=== PATIENT | female | born 1970 | race African-American/Black ===

== ENCOUNTER 2017-12-01 16:34 | Emergency (ER) | payer BC ==
[2017-12-01 16:40] VITALS: BP 141/86; PULSE 81; TEMP 98.3; BMI 32.9
[2017-12-01] MEDS ORDERED: LIDOCAINE 2.5%/PRILOCAINE 2.5% (5 Gram/TUBE) TP ONE ×2 (16:47→16:48)
--- NOTE | 2017-12-01 16:56 | PDOC ---
History of Present Illness - General History Source: Patient Exam Limitations: No Limitations - History of Present Illness Initial Comments: The patient is a 47 year old female with no significant past medical history who presents to the emergency department complaining of pedunculated mole pain on left side of neck beginning 5 days ago. The patient reports having 2 pedunculated moles on her left side of neck for most of her life without any irritation. The patient reports the dorsal pedunculated mole was painful, throbbing, warm, and sensitive to the touch today which prompted her to visit the ED today. The patient admits to taking Motrin with slight alleviation. The patient denies chest pain, shortness of breath, headache, and dizziness. Denies fevers, chills, nausea, vomiting, diarrhea, and constipation. Denies dysuria, frequency, urgency, and hematuria. Allergies: NKDA Past surgical history: Appendectomy, Hernia Repair Social history: Occasional alcohol use.No reported cigarette or drug use. <Mary Nogueira - Last Filed: 12/01/17 17:24> <Carroll Mireles - Last Filed: 12/01/17 17:26> - General Chief Complaint: Pain Stated Complaint: PAIN, SORENES TO MOLES LEFT NECK Time Seen by Provider: 12/01/17 16:38 Past History <Mary Nogueira - Last Filed: 12/01/17 17:24> - Past Medical History Asthma: Yes COPD: No Other medical history: ENVIRONMENTAL ALLERGIES - Surgical History Appendectomy: Yes - Suicide/Smoking/Psychosocial Hx Smoking History: Never smoked Have you smoked in the past 12 months: No Information on smoking cessation initiated: No Hx Alcohol Use: (occasional) <Carroll Mireles - Last Filed: 12/01/17 17:26> - Past Medical History Allergies/Adverse Reactions: Allergies Allergy/AdvReac Type Severity Reaction Status Date / Time No Known Drug Allergies Allergy Verified 12/01/17 16:35 Home Medications: Ambulatory Orders Albuterol Sulfate [Proair Hfa] 8.5 gm IH ASDIR 12/01/17 Fluticasone Prop 0.05% Nasal [Flonase -] 1 - 2 spray NS DAILY 12/01/17 Levocetirizine Dihydrochloride 5 mg PO DAILY 12/01/17 Review of Systems - Review of Systems Able to Perform ROS?: Yes Comments:: CONSTITUTIONAL: Absent: Fever, Chills, Diaphoresis, Generalized Weakness, Malaise, Loss of Appetite HEENT: (+)Pain in pedunculated mole on left side of neck. Absent: Rhinorrhea, Nasal Congestion, Throat Pain, Throat Swelling, Difficulty Swallowing, Mouth Swelling, Ear Pain, Eye Pain, Visual Changes CARDIOVASCULAR: Absent: Chest Pain, Syncope, Palpitations, Irregular Heart Rate, Lightheadedness , Peripheral Edema RESPIRATORY: Absent: Cough, Shortness of Breath, SOB with Exertion, Orthopnea, Wheezing, Stridor, Hemoptysis GASTROINTESTINAL: Absent: Abdominal pain, Abdominal Distension, Nausea, Vomiting, Diarrhea, Constipation, Melena, Hematochezia GENITOURINARY: Absent: Dysuria, Frequency, Urgency, Hesitancy, Flank Pain, Genital Pain MUSCULOSKELETAL: Absent: Myalgia, Arthralgia, Joint Swelling, Back pain, Neck Pain SKIN: Absent: Rash, Itching, Pallor HEMATOLOGIC/IMMUNOLOGIC: Absent: Easy Bleeding, Easy Bruising, Lymphadenopathy, Frequent infections ENDOCRINE: Absent: Unexplained Weight Gain, Unexplained Weight Loss, Heat Intolerance, Cold Intolerance NEUROLOGIC: Absent: Headache, Focal Weakness, Paresthesias, Vertigo, Lightheadedness, Unsteady Gait, Seizure, Mental Status Changes, Incontinence PSYCHIATRIC: Absent: Anxiety, Depression <Mary Nogueira - Last Filed: 12/01/17 17:24> *Physical Exam - Vital Signs Last Vital Signs Temp Pulse Resp BP Pulse Ox 98.3 F 81 18 141/86 99 12/01/17 16:35 12/01/17 16:35 12/01/17 16:35 12/01/17 16:35 12/01/17 16:35 - Physical Exam Comments: GENERAL: The patient is awake, alert, and fully oriented, in no acute distress. HEAD: Normal with no signs of trauma. EYES: Pupils equal, round and reactive to light, extraocular movements intact, sclera anicteric, conjunctiva clear. NECK: (+)2 Pedunculated moles in supraclavicular region. (+)Anterior mole non tender. (+) Posterior mole tender to touch. No signs of infection. No erythema. No drainage. No swelling. No fluctuance. EXTREMITIES: Normal range of motion, no edema. NEUROLOGICAL: Normal speech, normal gait. PSYCH: Normal mood, normal affect. SKIN: Warm, Dry, normal turgor, no rashes or lesions noted. <Mary Nogueira - Last Filed: 12/01/17 17:24> - Vital Signs Last Vital Signs Temp Pulse Resp BP Pulse Ox 98.3 F 81 18 141/86 99 12/01/17 16:35 12/01/17 16:35 12/01/17 16:35 12/01/17 16:35 12/01/17 16:35 <Carroll Mireles - Last Filed: 12/01/17 17:26> ED Treatment Course - Medications Given in the ED: ED Medications Discontinued Medications Generic Name Dose Route Start Last Admin Trade Name Freq PRN Reason Stop Dose Admin Lidocaine/Prilocaine 1 applic 12/01/17 16:47 12/01/17 16:53 Emla - TP 12/01/17 16:48 1 applic ONCE ONE Administration <Mary Nogueira - Last Filed: 12/01/17 17:24> Medical Decision Making - Medical Decision Making 12/01/17 16:54 47-year-old female without significant past medical history presents complaining of a painful mole on the left side of the neck. Patient has had the mole there for many years. Recently has become quite irritated, worse over the last 4 days. Whenever she touches the area it is painful. There is no bleeding or discharge. There is no redness and no fever. On examination she has 2 pedunculated moles on the left side of the neck in the supraclavicular region. There are no signs of infection. There are no signs of abscess. The mole is sensitive to manipulation, but this is likely related to it being pedunculated with irritation of the neck. Impression: Benign moles on the left neck, associated with pain, but no signs of infection or malignancy. EMLA cream was applied with an occlusive dressing to help relieve the patient's pain. Patient advised to follow-up with plastic surgery later this week. <Carroll Mireles - Last Filed: 12/01/17 17:26> *DC/Admit/Observation/Transfer - Attestations Scribe Attestion: Documentation prepared by Mary Nogueira, acting as medical office assistant for Carroll Mireles MD. <Mary Nogueira - Last Filed: 12/01/17 17:24> - Discharge Dispostion Admit: No - Attestations Physician Attestion: 12/01/17 17:26 The scribe's documentation has been prepared under my direction and personally reviewed by me in its entirety. I have confirmed that the note above accurately reflects all work, treatment, procedures, and medical decision- making performed by me. <ChiCarroll regalado - Last Filed: 12/01/17 17:26> Diagnosis at time of Disposition: Benign mole - Discharge Dispostion Disposition: HOME Condition at time of disposition: Stable - Referrals Referrals: Pop Lynn MD [Staff Physician] - Call tomorrow - Patient Instructions Additional Instructions: Regina, today you were evaluated in the emergency room for a painful mole on the left neck. You're advised to seek follow-up with Dr. Marcelo Lynn for removal. EMLA cream was applied to the mole with an occlusive dressing to help relieve the pain. Fortunately, there were no signs of infection and no signs of cancer on examination of the mole. Follow-up with the plastic surgeon as recommended, return to the emergency department for any severe or progressive symptoms.
== END 2017-12-01 17:00 | disposition home or self-care (01) ==
LOC: FER 16:34
DX: D22.9 Melanocytic nevi, unspecified (principal); J45.909 Unspecified asthma, uncomplicated; J30.89 Other allergic rhinitis
CPT/HCPCS: 99282-25

== ENCOUNTER 2018-03-24 16:27 | Emergency (ER) | payer BC ==
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
[2018-03-24 16:58] VITALS: BP 121/80; PULSE 79; TEMP 98; BMI 33.1
== END 2018-03-24 17:32 | disposition home or self-care (01) ==
LOC: FER 16:27
DX: S00.01XA Abrasion of scalp, initial encounter (principal); X58.XXXA Exposure to other specified factors, initial encounter; Y93.89 Activity, other specified; Y92.410 Unspecified street and highway as the place of occurrence of the external cause; J45.902 Unspecified asthma with status asthmaticus
CPT/HCPCS: 99282-25

== ENCOUNTER 2021-03-05 16:25 | Emergency (ER) | payer BC, OTHER ==
[2021-03-05] MEDS ORDERED: ACETAMINOPHEN 500 MG TABLET (FP) PO ONE (16:44)
[2021-03-05 16:45] VITALS: PULSE 87; TEMP 99; BMI 33.6
[2021-03-05] MEDS ORDERED: ACETAMINOPHEN 500 MG TABLET (FP) ONE (16:58)
[2021-03-05 17:47] VITALS: BP 142/99
== END 2021-03-05 17:55 | disposition home or self-care (01) ==
LOC: FER 16:25
DX: S00.93XA Contusion of unspecified part of head, initial encounter (principal)
CPT/HCPCS: 99283-25

== ENCOUNTER 2022-09-04 10:47 | Emergency (ER) | payer OTHER ==
[2022-09-04] MEDS ORDERED: ACETAMINOPHEN 1000 MG/100 ML BAG IVPB ONE (11:13)
[2022-09-04] MEDS ORDERED: ONDANSETRON 4 MG/2 ML VIAL IVPUSH ONE (11:13)
[2022-09-04] MEDS ORDERED: SODIUM CHLORIDE 0.9% 500 ML INFUS.BAG IV ONE (11:13)
[2022-09-04 11:17] VITALS: BMI 32.9
[2022-09-04] MEDS ORDERED: FAMOTIDINE 20 MG/50 ML IVPB 20 MG/50 ML MG IVPB ONE ×2 (11:19→12:03)
[2022-09-04] MEDS ORDERED: ONDANSETRON 4 MG/2 ML VIAL ONE (11:21)
[2022-09-04] MEDS ORDERED: ACETAMINOPHEN INJECTION 100 ML IVPB ONE (11:21)
[2022-09-04 12:29] LABS: HEMATOCRIT 42.9 % (32.4-45.2); HEMOGLOBIN 14.5 G/dL (10.7-15.3); MCH 30.5 pg (25.7-33.7); MCHC 33.8 g/dl (32.0-36.0); MEAN CELL VOLUME 90.1 fl (80-96); MEAN PLT VOLUME 9.7 fl (7.5-11.1); PLATELET COUNT 168.8 10^3/uL (134-434); RBC 4.76 10^6/uL (3.60-5.2); WHITE BLOOD COUNT 7.5 10^3/uL (4.0-10.8)
[2022-09-04 12:36] LABS: ALBUMIN 3.3 g/dl (3.4-5.0); BILIRUBIN,TOTAL 0.7 mg/dl (0.2-1); CALCIUM 9.2 mg/dl (8.5-10); TOT PROT 7.7 g/dl (6.4-8.2)
[2022-09-04] MEDS ORDERED: PROCHLORPERAZINE INJECTION 10 MG/2 ML VIAL IVPB ONE (13:04)
[2022-09-04] MEDS ORDERED: PROCHLORPERAZINE INJECTION 10 MG/2 ML VIAL ONE (13:08)
[2022-09-04 13:32] LABS: PLATELET ESTIMATE ADEQUATE
[2022-09-04 16:18] VITALS: BP 129/96; PULSE 91; RESP 20; TEMP 98.9
== END 2022-09-04 16:23 | disposition home or self-care (01) ==
LOC: FER 10:47
PROC: 3E033GC Introduction of Other Therapeutic Substance into Peripheral Vein, Percutaneous Approach (ICD-10-PCS; principal; 2022-09-04)
DX: J09.X2 Influenza due to identified novel influenza A virus with other respiratory manifestations (principal); R51.9 Headache, unspecified; R11.2 Nausea with vomiting, unspecified; R74.01 Elevation of levels of liver transaminase levels
CPT/HCPCS: 0241U-QW; 36415; 71045-TC-FY; 76705-TC; 80053; 81003; 81015; 84484; 85027; 87086; 93005; 99285-25

== ENCOUNTER 2022-09-17 13:51 | Emergency (ER) | payer OTHER ==
[2022-09-17 14:11] VITALS: BP 120/78; PULSE 91; RESP 20; TEMP 98.2; BMI 33.1
== END 2022-09-17 14:49 | disposition home or self-care (01) ==
LOC: FER 13:51
DX: R07.0 Pain in throat (principal)
CPT/HCPCS: 87651; 99283-25

== ENCOUNTER 2023-01-27 10:13 | Emergency (ER) | payer OTHER ==
[2023-01-27 10:34] VITALS: BP 131/91; PULSE 80; RESP 18; TEMP 98.2; BMI 33.5
== END 2023-01-27 11:40 | disposition home or self-care (01) ==
LOC: FER 10:13
DX: R20.2 Paresthesia of skin (principal); M79.642 Pain in left hand; R53.1 Weakness
CPT/HCPCS: 82962; 99282-25